=== PATIENT | male | born 1965 | race African-American/Black ===

== ENCOUNTER 2017-06-03 09:02 | Emergency (ER) | payer OTHER ==
[~2017-06-03] VITALS: Ht 165.1 cm; Wt 70.3 kg
[~2017-06-03 09:02] MED LIST: NKM
[2017-06-03 09:28] LABS: APPEARANCE,URINE CLEAR; KETONES,URINE 1+ (NEGATIVE); LEUKOCYTE ESTERASE ,URINE 1+ (NEGATIVE); NITRITE,URINE NEGATIVE (NEGATIVE); PH,URINE 6 (4.5-8.0); PROTEIN,URINE 1+ (NEGATIVE); UROBILINOGEN,URINE 1 MG/DL (0.0-1.0)
[2017-06-03] MEDS ORDERED: CIPROFLOXACIN500 M2 ORAL (09:28)
[2017-06-03] MEDS ORDERED: Lidocaine 1% MPF 10mg/ml 5ml INJ ONE (09:30)
[2017-06-03 09:41] LABS: BACTERIA,URINE FEW /HPF; RBC,URINE 0-2 /HPF (0 - 0); SQUAMOUS EPITHELIAL CELL,UR OCCASIONAL /LPF (NONE/OCC); WBC,URINE 0-2 /HPF (0 - 0)
[2017-06-03 09:45] VITALS: BP 148/88
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
== END 2017-06-03 09:45 | disposition home or self-care (01) ==
LOC: EMR 09:31
DX: R30.0 Dysuria (principal); I10 Essential (primary) hypertension
CPT/HCPCS: 81003; 96372; 99284; J0696

== ENCOUNTER 2019-12-01 09:53 | Emergency (ER) | payer OTHER ==
[~2019-12-01] VITALS: Ht 165.1 cm; Wt 72.6 kg
[~2019-12-01 09:53] MED LIST changes: +CIPROFLOXACIN500 M2 ORAL
[2019-12-01 10:15] VITALS: BP 135/94
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
--- NOTE | 2019-12-01 10:20 | NUR ---
ED Nurse Note:pt. c/o penial discharge and itchiness, urine sent to labs
[2019-12-01 10:29] LABS: APPEARANCE,URINE SLIGHTLY CLOUDY; BILIRUBIN, URINE NEGATIVE (NEGATIVE); GLUCOSE, URINE (UA) NEGATIVE (NEGATIVE); KETONES,URINE 1+ (NEGATIVE); LEUKOCYTE ESTERASE ,URINE 2+ (NEGATIVE); NITRITE,URINE POSITIVE (NEGATIVE); PH,URINE 5 (4.5-8.0); PROTEIN,URINE 2+ (NEGATIVE); UROBILINOGEN,URINE 1 MG/DL (0.0-1.0)
[2019-12-01] MEDS ORDERED: Azithromycin 250mg tab ORAL ONE (10:30)
[2019-12-01] MEDS ORDERED: Lidocaine 1% MPF 10mg/ml 5ml INJ ONE (10:30)
[2019-12-01 10:39] VITALS: BP 135/94
--- NOTE | 2019-12-01 10:40 | NUR ---
ER DISCHARGE NOTE: Patient is cleared to be discharged per ERMD, pt is aox4, on room air, with stable vital signs. pt was given dc instructions, pt was able to verbalize understanding. pt is able to ambulate with steady gait. pt took all belongings.
[2019-12-01 10:50] LABS: COLOR,URINE YELLOW
== END 2019-12-01 10:43 | disposition home or self-care (01) ==
LOC: EMR 10:17
DX: N34.2 Other urethritis (principal); I10 Essential (primary) hypertension; Z93.3 Colostomy status
CPT/HCPCS: 81003; 87086; 96372; 96374; J0696; Q0144; Z7502; 99284

== ENCOUNTER 2019-12-10 06:52 | Emergency (ER) | payer OTHER ==
[~2019-12-10] VITALS: Ht 165.1 cm; Wt 72.6 kg
[2019-12-10 07:06] VITALS: BP 144/95
[2019-12-10] MEDS ORDERED: NITROFURANTOIN100 M2 ORAL (07:21)
[2019-12-10 07:35] VITALS: BP 144/95
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
== END 2019-12-10 07:45 | disposition home or self-care (01) ==
LOC: EMR 07:14
DX: N39.0 Urinary tract infection, site not specified (principal); I10 Essential (primary) hypertension; Z93.3 Colostomy status
CPT/HCPCS: 99281